=== PATIENT | female | born 1955 | race Caucasian/White ===

== ENCOUNTER 2020-05-21 11:07 | Emergency (ER) | payer SELFPAY ==
[~2020-05-21] VITALS: Ht 167.6 cm; Wt 104.5 kg
[2020-05-21 11:14] VITALS: Ht 167.6 cm; Wt 104.5 kg
[2020-05-21] MEDS ORDERED: NORVASC5 MG PO (11:15)
[2020-05-21] MEDS ORDERED: LIPITOR40 MG PO (11:16)
[2020-05-21] MEDS ORDERED: BENZTROPINE MESY1 MG PO (11:17)
[2020-05-21] MEDS ORDERED: OS-CAL500 MG PO (11:18)
[2020-05-21] MEDS ORDERED: CLOZAPINE200 MG PO (11:19)
[2020-05-21] MEDS ORDERED: VITAMIN D1000 UNI1 PO (11:19)
[2020-05-21] MEDS ORDERED: COLACE100 MG PO (11:19)
[2020-05-21] MEDS ORDERED: DEPAKOTE250 MG PO (11:22)
[2020-05-21] MEDS ORDERED: INVEGA SUS117 MG/0.7 IM (11:24)
[2020-05-21] MEDS ORDERED: MOBIC7.5 MG PO (11:25)
[2020-05-21] MEDS ORDERED: MELATONIN 3 MG1 TAB PO (11:25)
[2020-05-21] MEDS ORDERED: LOPRESSOR25 MG PO (11:26)
[2020-05-21] MEDS ORDERED: MILK OF MAGNESI30 ML PO (11:27)
[2020-05-21] MEDS ORDERED: DITROPAN XL 1010 MG PO (11:27)
[2020-05-21] MEDS ORDERED: ASCORBIC ACID500 MG PO (11:28)
[2020-05-21] MEDS ORDERED: RISPERDAL2 MG PO (11:28)
[2020-05-21] MEDS ORDERED: VITAMIN D2000 UNI1 PO (11:29)
[2020-05-21] MEDS ORDERED: ZINC-220220 MG PO (11:30)
[2020-05-21 12:26] LABS: BASOPHILS 0.1 % (0-2); EOSINOPHILS 0.1 % (0-7); HEMATOCRIT 42.7 % (36.0-48.0); HEMOGLOBIN 14.3 g/dL (12-16); IMMATURE GRANULOCYTES 0.2 % (0-5); LYMPHOCYTES 17.6 % (15-50); MCH 30.6 pg (26.0-34.0); MCHC 33.5 g/dL (31.0-37.0); MCV 91.2 fL (80.0-100.0); MEAN PLATELET VOLUME 9.2 fL (7.4-10.4); PLATELET COUNT 226 10x3/uL (130-400); RBC 4.68 10x6/uL (4.00-5.40); RDW 12.8 % (11.5-14.5); WBC 12.9 10x3/uL (4.8-10.8)
[2020-05-21 12:33] LABS: BILIRUBIN NEGATIVE (NEGATIVE); KETONE SMALL mg/dL (NEGATIVE); NITRITE NEGATIVE (NEGATIVE); UROBILINOGEN NORMAL mg/dL (< 2)
[2020-05-21 12:38] LABS: BACTERIA FEW HPF (NONE SEEN); EPITHELIAL CELLS 0-5 /hpf (0-5)
[2020-05-21 12:39] LABS: GRANULAR CAST 0-5 LPF (NONE SEEN)
[2020-05-21 12:43] LABS: APTT 37.2 SECONDS (22.8-39.4); INR 0.98 (0.85-1.17); PROTIME 12.9 SECONDS (11.6-15.0)
[2020-05-21 12:45] LABS: CALC OSMOLALITY 271 mosm/kg (275-300); CALCIUM 9.1 mg/dL (8.5-10.1); CARBON DIOXIDE 30.4 mmol/L (21.0-32.0); CHLORIDE - SERUM 101 mmol/L (98-107); CREATININE - SERUM 0.8 mg/dL (0.6-1.3); GLUCOSE 107 mg/dL (74-106); POTASSIUM - SERUM 3.7 mmol/L (3.5-5.1); SODIUM 136 mmol/L (136-145); UREA NITROGEN 12 mg/dL (7-18); eGFR NON AFRICAN AMERICAN 77 mL/min (90-120)
[2020-05-21 12:52] LABS: ALBUMIN 3.3 g/dL (3.4-5.0); ALKALINE PHOSPHATASE 88 U/L (30-120); ALT (SGPT) 16 U/L (10-68); BILIRUBIN - TOTAL 0.46 mg/dL (0.2-1.3); CKMB 2.2 U/L (0.0-3.6); CREATINE KINASE 117 UL (21-215); MAGNESIUM - SERUM 2.2 mg/dL (1.8-2.4); THYROID STIMULATING HORMONE 2.66 uIU/mL (0.36-3.74); TROPONIN-I < 0.017 ng/mL (0.000-0.060)
[2020-05-21 14:06] LABS: UDS - AMPHET NEGATIVE QUAL (NEGATIVE); UDS - BARB NEGATIVE QUAL (NEGATIVE); UDS - BENZO NEGATIVE QUAL (NEGATIVE); UDS - COCAINE NEGATIVE QUAL (NEGATIVE); UDS - OPIATE NEGATIVE QUAL (NEGATIVE); UDS - PCP NEGATIVE QUAL (NEGATIVE); UDS - THC NEGATIVE QUAL (NEGATIVE)
[2020-05-21 21:05] VITALS: BP 117/64
== END 2020-05-21 21:19 ==
LOC: D.ER 11:07
PROVIDERS: Family Medicine
DX: R46.89 Other symptoms and signs involving appearance and behavior (principal); R45.1 Restlessness and agitation; R41.82 Altered mental status, unspecified; E11.9 Type 2 diabetes mellitus without complications; E07.9 Disorder of thyroid, unspecified; I10 Essential (primary) hypertension; E78.5 Hyperlipidemia, unspecified

== ENCOUNTER 2020-10-27 22:20 | Emergency (ER) | payer MEDICARE ==
[~2020-10-27] VITALS: Ht 167.6 cm; Wt 99.8 kg
[~2020-10-27 22:20] MED LIST: ASCORBIC ACID500 MG PO; BENZTROPINE MESY1 MG PO; CLOZAPINE200 MG PO; COLACE100 MG PO; DEPAKOTE250 MG PO; DITROPAN XL 1010 MG PO; INVEGA SUS117 MG/0.7 IM; KEFLEX500 MG PO; LIPITOR40 MG PO; LOPRESSOR25 MG PO; MACROBID100 MG PO; MELATONIN 3 MG1 TAB PO; MILK OF MAGNESI30 ML PO; MOBIC7.5 MG PO; NORVASC5 MG PO; OS-CAL500 MG PO; RISPERDAL2 MG PO; VITAMIN D1000 UNI1 PO; VITAMIN D2000 UNI1 PO; ZINC-220220 MG PO
[2020-10-27 22:21] VITALS: Ht 167.6 cm; Wt 99.8 kg
[2020-10-27] MEDS ORDERED: KLONOPIN0.5 MG PO (22:29)
[2020-10-27] MEDS ORDERED: INVEGA SUS117 MG/0.7 IM (22:29)
[2020-10-27] MEDS ORDERED: ARTANE2 MG PO (22:30)
[2020-10-27] MEDS ORDERED: SYNTHROID50 MCG PO (22:30)
[2020-10-27] MEDS ORDERED: ZYPREXA10 MG IM (22:31)
[2020-10-27 22:41] LABS: BASOPHILS 0.3 % (0-2); EOSINOPHILS 0 % (0-7); HEMATOCRIT 37.3 % (36.0-48.0); HEMOGLOBIN 12.7 g/dL (12-16); IMMATURE GRANULOCYTES 0.2 % (0-5); LYMPHOCYTE ABS# 3.23 10x3/uL (1.18-3.74); LYMPHOCYTES 30.4 % (15-50); MEAN PLATELET VOLUME 9.5 fL (7.4-10.4); MONOCYTES 10.2 % (2-11); NEUTROPHIL ABS# 6.26 10x3/uL (1.56-6.13); NEUTROPHILS 58.9 % (40-80); PLATELET COUNT 249 10x3/uL (130-400); RBC 4.24 10x6/uL (4.00-5.40); RDW 13.1 % (11.5-14.5); WBC 10.6 10x3/uL (4.8-10.8)
[2020-10-27 22:54] LABS: ANION GAP 12.2 mmol/L (8-16); CALCIUM 8.9 mg/dL (8.5-10.1); CARBON DIOXIDE 25.2 mmol/L (21.0-32.0); CREATININE - SERUM 0.9 mg/dL (0.6-1.3); POTASSIUM - SERUM 3.4 mmol/L (3.5-5.1)
[2020-10-27 23:00] LABS: ALBUMIN 3.4 g/dL (3.4-5.0); BILIRUBIN - TOTAL 0.6 mg/dL (0.2-1.3); MAGNESIUM - SERUM 1.6 mg/dL (1.8-2.4); PROTEIN - SERUM 6.4 g/dL (6.4-8.2)
[2020-10-28 01:15] VITALS: BP 157/88
== END 2020-10-28 01:15 | disposition home or self-care (01) ==
LOC: D.ER 22:20
PROVIDERS: Emergency Medicine
DX: F25.8 Other schizoaffective disorders (principal); E11.9 Type 2 diabetes mellitus without complications; I10 Essential (primary) hypertension; E78.5 Hyperlipidemia, unspecified